=== PATIENT | male | born 1950 | race Caucasian/White ===

== ENCOUNTER 2018-05-28 13:19 | Emergency (ER) | payer BC ==
[2018-05-28 13:52] VITALS: BP 152/93
--- NOTE | 2018-05-28 14:45 | UC ---
General HPI - HPI Summary HPI Summary: pt states that for the past week he is waking in a "panic" with "anxiety". he reports falling asleep with no difficulty. last pm was the 4th bout. when this occurs, he gets up and goes for a walk but still has difficulty going back to sleep. he also notes that once he panics and gets anxiety "palpitations" will set in. he denies any cp or sob. he does get some nocturnal nasal congestion and post nasal drip which he wonders if it is contributing. he has taken decongestants and allergy med for the congestion but all of the panic and anxiety began prior. he is staying in a camper but does that every summer. he also notes his living room is being remodeled but that does not bother him. he denies any life changing events or work/family stress. he denies being suicidal or homicidal as well. he has the support of his . upon questioning, he does have a remote hx of depression but has not required tx since 2008. he currently feels fine. - History of Current Complaint Chief Complaint: UCGeneralIllness Stated Complaint: CAN'T SLEEP,POST NASAL DRIP Time Seen by Provider: 05/28/18 14:21 Hx Obtained From: Patient Pain Intensity: 0 Aggravating: nothing Alleviating: nothing Associated Signs & Symptoms: Positive: Palpitations. Negative: Chest Pain, Dizziness, Headache, Nausea, SOB - Allergy/Home Medications Allergies/Adverse Reactions: Allergies Allergy/AdvReac Type Severity Reaction Status Date / Time ciprofloxacin AdvReac Anxiety Verified 05/28/18 13:52 metronidazole [From Flagyl] AdvReac Anxiety Verified 05/28/18 13:52 Home Medications: Home Medications Loratadine 10 mg PO BEDTIME 05/28/18 [History Confirmed 05/28/18] Omeprazole CAP* [Prilosec CAP* 20 MG] 40 mg PO DAILY 05/28/18 [History Confirmed 05/28/18] Pseudoephedrine TAB* [Sudafed TAB*] 30 mg PO Q6H PRN 05/28/18 [History Confirmed 05/28/18] Simvastatin [Zocor] 40 mg PO BEDTIME 05/28/18 [History Confirmed 05/28/18] PMH/Surg Hx/FS Hx/Imm Hx Cardiovascular History: Hypertension GI/ History: Gastroesophageal Reflux Psychological History: Depression - Surgical History Surgical History: Yes Surgery Procedure, Year, and Place: appy, L lower leg - Family History Known Family History: Positive: Other - [place], depression - Social History Occupation: Employed Full-time Lives: With Family Alcohol Use: Occasionally Substance Use Type: None Smoking Status (MU): Former Smoker Type: Cigarettes, Cigars Amount Used/How Often: 1 ppd Length of Time of Smoking/Using Tobacco: 30 + yrs When Did the Patient Quit Smoking/Using Tobacco: 2014 - Immunization History Vaccination Up to Date: Yes Review of Systems Constitutional: Negative Skin: Negative Eyes: Negative ENT: Negative Respiratory: Negative Cardiovascular: Palpitations - after the anxiety/panic set in Gastrointestinal: Negative Genitourinary: Negative Motor: Negative Neurovascular: Negative Musculoskeletal: Negative Neurological: Negative Psychological: Anxious Is Patient Immunocompromised?: No All Other Systems Reviewed And Are Negative: Yes Physical Exam Triage Information Reviewed: Yes Appearance: Well-Appearing, Other: - Well groomed Vital Signs: Initial Vital Signs Temp 98.1 F 05/28/18 13:37 Pulse 80 05/28/18 13:37 Resp 16 05/28/18 13:37 BP 152/93 05/28/18 13:37 Pulse Ox 100 05/28/18 13:37 Vital Signs Reviewed: Yes Eyes: Positive: Conjunctiva Clear ENT: Positive: Pharynx normal, TMs normal. Negative: Nasal congestion, Nasal drainage Neck: Positive: Supple, Nontender, No Lymphadenopathy, Other: - No thyromegaly or nodules Respiratory: Positive: Lungs clear, Normal breath sounds Cardiovascular: Positive: RRR, No Murmur Abdomen Description: Positive: Nontender, No Organomegaly, Soft Bowel Sounds: Positive: Present Musculoskeletal: Positive: ROM Intact, No Edema Neurological: Positive: Alert Psychological: Positive: Age Appropriate Behavior, Other: - Good insight and judgement. Well groomed. Skin Exam: Normal Course/Dx - Course Course Of Treatment: non toxic. no concern for myxedema or thyroid storm. BP mildly elevated but probably complaint related, will recheck on f/u with pcp( appt in 2 days). no suicidal or homicidal ideation and no depressed affect but pt agrees to go to ER immediatley for any worsening. will tx with vistaril for anxiety/sleep disturbance until pt able to see Dr duran in 2 days for additional evaluation. - Differential Dx - Multi-Symptom Provider Diagnoses: Sleep disturbance. anxiety Discharge - Sign-Out/Discharge Documenting (check all that apply): Patient Departure - Discharge Plan Condition: Stable Disposition: HOME Prescriptions: hydrOXYzine pamoate [Vistaril] 25 mg PO Q6HR PRN #10 capsule PRN Reason: Sleep Patient Education Materials: Insomnia (ED), Anxiety (ED) Referrals: Rizwan Duran DO [Primary Care Provider] - As Soon As Possible - Billing Disposition and Condition Condition: STABLE Disposition: Home
== END 2018-05-28 14:53 | disposition home or self-care (01) ==
LOC: UCCORT 13:19
DX: G47.9 Sleep disorder, unspecified (principal); F41.9 Anxiety disorder, unspecified; Z88.1 Allergy status to other antibiotic agents; I10 Essential (primary) hypertension; K21.9 Gastro-esophageal reflux disease without esophagitis; F32.9 Major depressive disorder, single episode, unspecified; Z87.891 Personal history of nicotine dependence
CPT/HCPCS: 99212; G0463

== ENCOUNTER 2018-12-04 09:40 | Emergency (ER) | payer BC, OTHER ==
[2018-12-04 10:18] VITALS: BP 142/96
--- NOTE | 2018-12-04 10:24 | UC ---
UC General HPI - HPI Summary HPI Summary: on 11/30/18, pt hit his L elbow on truck bed while picking up garbage. c/o pain and swelling to the inner elbow. - History of Current Complaint Chief Complaint: UCUpperExtremity Stated Complaint: LT ELBOW INJ (WC) Time Seen by Provider: 12/04/18 10:17 Hx Obtained From: Patient Onset/Duration: Sudden Onset Timing: Constant Pain Intensity: 0 Associated Signs & Symptoms: Negative: Weakness - Allergy/Home Medications Allergies/Adverse Reactions: Allergies Allergy/AdvReac Type Severity Reaction Status Date / Time ciprofloxacin AdvReac Anxiety Verified 12/04/18 10:13 metronidazole [From Flagyl] AdvReac Anxiety Verified 12/04/18 10:13 Home Medications: Home Medications Omeprazole 1 cap QAM 12/04/18 [History Confirmed 12/04/18] PMH/Surg Hx/FS Hx/Imm Hx Endocrine History: Dyslipidemia GI/ History: Gastroesophageal Reflux - Surgical History Surgical History: Yes Surgery Procedure, Year, and Place: appy, L lower leg - Family History Known Family History: Positive: Other - [place], depression - Social History Alcohol Use: None Substance Use Type: None Smoking Status (MU): Former Smoker Type: Cigarettes, Cigars Amount Used/How Often: 1 ppd Length of Time of Smoking/Using Tobacco: 30 + yrs When Did the Patient Quit Smoking/Using Tobacco: 2014 - Immunization History Vaccination Up to Date: Yes Review of Systems All Other Systems Reviewed And Are Negative: Yes Constitutional: Positive: Negative Skin: Positive: Negative Eyes: Positive: Negative ENT: Positive: Negative Respiratory: Positive: Negative Cardiovascular: Positive: Negative Gastrointestinal: Positive: Negative Genitourinary: Positive: Negative Motor: Negative: Decreased ROM, Weakness Neurovascular: Negative: Decreased Sensation Neurological: Positive: Negative Psychological: Positive: Negative Physical Exam Triage Information Reviewed: Yes Appearance: Well-Appearing Vital Signs: Initial Vital Signs Temp 97.7 F 12/04/18 10:14 Pulse 62 12/04/18 10:14 Resp 16 12/04/18 10:14 BP 142/96 12/04/18 10:14 Pulse Ox 99 12/04/18 10:14 Eye Exam: Normal ENT: Positive: Normal ENT inspection Neck: Positive: Supple Respiratory: Positive: Lungs clear, Normal breath sounds Cardiovascular: Positive: RRR, No Murmur Abdomen Description: Positive: Nontender Bowel Sounds: Positive: Present Musculoskeletal: Positive: Other: - LUE: medial epicondyl area with mild swelling and tenderness. ROM intact. Rest of arm non tender and has full s/v/m function. Neurological: Positive: Alert Psychological: Positive: Age Appropriate Behavior Skin Exam: Normal Skin: Negative: Rashes Diagnostics - Radiology No standard instances Radiology Interpretation Completed By: Radiologist - No fracture of the left elbow. Course/Dx - Course Course Of Treatment: No HTN, pt notes BP goes up with visits then improves. BP visit related. - Differential Dx - Multi-Symptom Differential Diagnoses: Other - fx, contusion, bursitis - Diagnoses Provider Diagnosis: Contusion of left elbow Discharge - Sign-Out/Discharge Documenting (check all that apply): Patient Departure All imaging exams completed and their final reports reviewed: Yes - Discharge Plan Condition: Stable Disposition: HOME Patient Education Materials: Contusion in Adults (ED) Referrals: Rizwan Duran DO [Primary Care Provider] - If Needed - Billing Disposition and Condition Condition: STABLE Disposition: Home
== END 2018-12-04 11:00 | disposition home or self-care (01) ==
LOC: UCCORT 09:40
DX: S50.02XA Contusion of left elbow, initial encounter (principal); K21.9 Gastro-esophageal reflux disease without esophagitis; Z88.1 Allergy status to other antibiotic agents; Z79.899 Other long term (current) drug therapy; Z87.891 Personal history of nicotine dependence; W22.8XXA Striking against or struck by other objects, initial encounter; Y92.9 Unspecified place or not applicable
CPT/HCPCS: 99211; G0463